=== PATIENT | female | born 1975 | race Two or more races ===

== ENCOUNTER 2018-05-29 10:20 | Emergency (ER) | payer OTHER ==
--- NOTE | 2018-05-29 10:45 | ER Document Report ---
ED GI/ - General Chief Complaint: Pelvic Pain Stated Complaint: PELVIC PAIN Time Seen by Provider: 05/29/18 10:42 Notes: Chief complaint: Right inguinal mass History of complain:( obtained from----patient) 43 years old female felt small bumps in the right inguinal region, therefore concerned and came to the ED. Her sister was diagnosed with ovarian cancer. Otherwise no pain no nausea vomiting. Denies any vaginal discharges. She shaves her perineum in the pelvic region. Onset: As above Duration: Gradual last few weeks Severity: Mild Quality: Dull Context: As above none Exacerbating factor and relieving factors: REVIEW OF SYSTEMS: CONSTITUTIONAL : Denies fever, chills, or sweats. Denies recent illness. EENT: Denies eye, ear, throat, or mouth pain or symptoms. Denies nasal or sinus congestion or discharge. Denies throat, tongue, or mouth swelling or difficulty swallowing. CARDIOVASCULAR: Denies chest pain. Denies palpitations or racing or irregular heart beat. Denies ankle edema. RESPIRATORY: Denies cough, cold, or chest congestion. Denies shortness of breath, difficulty breathing, or wheezing. GASTROINTESTINAL: Denies distention. Denies nausea, vomiting, or diarrhea. Denies blood in vomitus, stools, or per rectum. Denies black, tarry stools. Denies constipation. GENITOURINARY: Denies difficulty urinating, painful urination, burning, frequency, blood in urine, or discharge. FEMALE GENITOURINARY: Denies vaginal bleeding, heavy or abnormal periods, irregular periods. Denies vaginal discharge or odor. MUSCULOSKELETAL: Denies back or neck pain or stiffness. Denies joint pain or swelling. SKIN: Denies rash, lesions or sores. HEMATOLOGIC : Denies easy bruising or bleeding. LYMPHATIC: Denies swollen, enlarged glands. NEUROLOGICAL: Denies confusion or altered mental status. Denies passing out or loss of consciousness. Denies dizziness or lightheadedness. Denies headache. Denies weakness or paralysis or loss of use of either side. Denies problems with gait or speech. Denies sensory loss, numbness, or tingling. Denies seizures. PSYCHIATRIC: Denies anxiety or stress. Denies depression, suicidal ideation, or homicidal ideation. ALL OTHER SYSTEMS REVIEWED AND NEGATIVE. PHYSICAL EXAMINATION: GENERAL: Well-appearing, well-nourished and in no acute distress. HEAD: Atraumatic, normocephalic. EYES: Pupils equal round and reactive to light, extraocular movements intact, conjunctiva are normal. ENT: Nares patent, oropharynx clear without exudates. Moist mucous membranes. NECK: Normal range of motion, supple without lymphadenopathy LUNGS: Breath sounds clear to auscultation bilaterally and equal. No wheezes rales or rhonchi. HEART: Regular rate and rhythm without murmurs ABDOMEN: Soft, nontender, nondistended abdomen. No guarding, no rebound. No masses appreciated. Right inguinal region-shows multiple small lymph nodes. Which are nontender mobile. Less than 1 cm. Examination of genitals-deferred Musculoskeletal: Normal range of motion, no pitting or edema. No cyanosis. NEUROLOGICAL: Cranial nerves grossly intact. Normal speech, normal gait. Normal sensory, motor exams PSYCH: Normal mood, normal affect. SKIN: Warm, Dry, normal turgor, no rashes or lesions noted. Dictation was performed using [employer] voice recognition software TRAVEL OUTSIDE OF THE [place] IN LAST 30 DAYS: No - HPI Notes: 05/31/18 08:53 Dictated - Related Data Allergies/Adverse Reactions: No Known Allergies Allergy (Unverified 05/29/18 10:23) Past Medical History - Social History Smoking Status: Former Smoker Chew tobacco use (# tins/day): No Frequency of alcohol use: Occasional Drug Abuse: None Family History: Reviewed & Not Pertinent Patient has suicidal ideation: No Patient has homicidal ideation: No Renal/ Medical History: Denies: Hx Peritoneal Dialysis Past Surgical History: Reports: Hx Abdominal Surgery Review of Systems - Review of Systems Notes: Dictated Physical Exam - Vital signs Vitals: Temp Pulse Resp BP Pulse Ox 98.3 F 72 12 113/73 100 05/29/18 10:33 05/29/18 10:33 05/29/18 10:33 05/29/18 10:33 05/29/18 10:33 - Notes Notes: Dictated Course - Vital Signs Vital signs: Temp Pulse Resp BP Pulse Ox 97.9 F 73 18 104/79 100 05/29/18 12:11 05/29/18 12:11 05/29/18 12:11 05/29/18 12:11 05/29/18 12:11 - Diagnostic Test Radiology reviewed: Reports reviewed - Pelvic ultrasound reported by radiologist as simple right ovarian cyst, and fibroid tumors. Discharge - Discharge Clinical Impression: Inguinal lymphadenopathy, Simple physiological cyst of ovary Condition: Fair Disposition: HOME, SELF-CARE Instructions: [facility]Gate Clerk Doctors
--- NOTE | 2018-05-29 11:49 | RADIOLOGY REPORT (SQ) ---
EXAM DESCRIPTION: U/S NON OB PEL TV W/DOPPLER COMPLETED DATE/TIME: 05/29/2018 11:25 am REASON FOR STUDY: Inguinal lymph nodes, rule out pelvic mass COMPARISON: None. TECHNIQUE: Dynamic and static grayscale images acquired of the pelvis via transvaginal approach and recorded on PACS. Additional selected color Doppler and spectral images recorded. LIMITATIONS: None. FINDINGS: UTERUS: There are several uterine fibroids. The largest measures 2.9 x 2.8 x 2.8 cm. ENDOMETRIAL STRIPE: No focal or generalized thickening. No masses. CERVIX: There are several small nabothian cysts. RIGHT OVARY AND DOPPLER: There is a simple 2.3 x 2.1 x 1.8 cm cyst. LEFT OVARY AND DOPPLER: Normal size. No worrisome masses. Normal arterial vascular flow without evide nce for torsion. FREE FLUID: None noted. OTHER: No other significant finding. MEASUREMENTS: UTERUS: 9.0 x 5.7 x 5.4 cm. ENDOMETRIAL STRIPE: 8.4 mm. RIGHT OVARY: 3.1 x 2.4 x 2.2 cm. LEFT OVARY: 2.3 x 1.3 x 1.0 cm. IMPRESSION: Simple small right ovarian cyst. Uterine fibroids. No acute findings. TECHNICAL DOCUMENTATION: JOB ID: [id number]- All Rights Reserved Rev-02/15 Reading location - IP/workstation name: [email or web address]
[2018-05-29 12:11] VITALS: BP 104/79
== END 2018-05-29 12:20 | disposition home or self-care (01) ==
LOC: ER 10:20
DX: R59.0 Localized enlarged lymph nodes (principal); N83.291 Other ovarian cyst, right side; R10.2 Pelvic and perineal pain
CPT/HCPCS: 76830; 93976; 99284